=== PATIENT | female | born 1965 | race Caucasian/White ===

== ENCOUNTER 2016-07-22 10:14 | Day surgery (SDC) | payer BC ==
--- NOTE | ~2016-07-22 | EGD ---
EGD REPORT [facility] [address] [address] NAME: LOUISE THAKUR : 65 STATUS : REG [facility]#: [id number] AGE: 51 ADM/REG DATE : 07/22/16 MR#: [id number] REPORT SERV DATE: 07/22/16 DICTATED BY: TOMEKA REVELES DATE: 07/22/16 REPORT STATUS : Draft [facility]ANSCRIBED BY: [facility] DATE: 07/22/16 Endoscopy Center Patient Name: Louise Thakur Date of : 1965 Attending MD: TOMEKA REVELES, Procedure Date No Time: 07/22/2016 Procedure: Flexible Sigmoidoscopy Indications: For therapy of colon polyps (rectal carcinoid) Referring MD: Erika Tyson Medicines: Monitored Anesthesia Care Complications: No immediate complications. Estimated blood loss: None. Procedure: Pre-Anesthesia Assessment: - ASA Grade Assessment: II - A patient with mild systemic disease. After obtaining informed consent, the endoscope was passed under direct vision. Throughout the procedure, the patient's blood pressure, pulse, and oxygen saturations were monitored continuously. The [facility] [id number] was introduced through the anus and advanced to the rectosigmoid junction. The flexible sigmoidoscopy was accomplished without difficulty. The patient tolerated the procedure well. The quality of the bowel preparation was good. Findings: The perianal and digital rectal examinations were normal. A single localized erosion with non-bleeding was found in the sigmoid colon. The was a slight whitish discoloration at the base. Preparations were made for mucosal resection. Band ligator and snare mucosal resection was successfully performed. The exam was otherwise without abnormality. Impression: - A single erosion in the sigmoid colon. - The examination was otherwise normal. - Mucosal resection was successfully performed. Recommendation: - Return to previous diet. - Continue present medications. - Await pathology results. - Repeat flexible sigmoidoscopy in 1 year for surveillance. Procedure Code(s): --- Professional --- 36200, 52, Sigmoidoscopy, flexible; with removal of tumor(s), polyp(s), or other lesion(s) by snare technique EGD REPORT [facility] [address] [place] [address] [place]. [address] NAME: LOUISE THAKUR : [birth year] STATUS : REG [facility] PAT#: [id number] AGE: 51 ADM/REG DATE : 07/22/16 MR#: [id number] REPORT SERV DATE: 07/22/16 DICTATED BY: TOMEKA REVELES DATE: 07/22/16 REPORT STATUS : Draft TRANSCRIBED BY: [employer] DATE: 07/22/16 Diagnosis Code(s): --- Professional --- K63.3, Ulcer of intestine K63.5, Polyp of colon CPT copyright 2013 [employer]. All rights reserved. The codes documented in this report are preliminary and upon production operations engineer review may be revised to meet current compliance requirements. TOMEKA REVELES, 07/22/2016 12:56 PM Number of Addenda: 0 Note Initiated On: 07/22/2016 12:34 PM Scope Withdrawal Time 0 hours 0 minutes 0 seconds [address] [place] [address]
[~2016-07-22 10:14] MED LIST: ACTEMRA80 MG/4 ML SC; FISH-EPA1000 MG PO; FOLIC PO; MULTIVITAMI1 PO; OS500+D PO; PLAQ200B PO; ZOL100 PO
== END 2016-07-22 23:59 | disposition home or self-care (01) ==
LOC: DMU 10:14
PROVIDERS: Internal Medicine Gastroenterology
PROC: 0DBN8ZX Excision of Sigmoid Colon, Via Natural or Artificial Opening Endoscopic, Diagnostic (ICD-10-PCS; principal; 2016-07-22 12:30)
DX: D3A.8 Other benign neuroendocrine tumors (principal); K63.3 Ulcer of intestine; M06.9 Rheumatoid arthritis, unspecified; Z98.890 Other specified postprocedural states
CPT/HCPCS: 88305; 88307; 88342; 88360

== ENCOUNTER 2016-08-15 12:10 | Day surgery (SDC) | payer BC, SELFPAY ==
--- NOTE | ~2016-08-15 | EGD ---
EGD REPORT [facility] [address] [address] NAME: LOUISE THAKUR : [birth year] STATUS : REG [facility]#: [id number] AGE: 51 ADM/REG DATE : 08/15/16 MR#: [id number] REPORT SERV DATE: 08/15/16 DICTATED BY: DATE: REPORT STATUS : Draft TRANSCRIBED BY: [employer] DATE: 08/15/16 Endoscopy Center Patient Name: Louise Thakur Date of : 1965 Attending MD: TOMEKA REVELES, Procedure Date No Time: 08/15/2016 Procedure: Lower EUS Indications: Rectal mucosal mass found on flex sig/colonoscopy. 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 Referring MD: FEI WORRELL MD, Erika Walters Medicines: Monitored Anesthesia Care Complications: No immediate complications. Estimated blood loss: None. Procedure: Pre-Anesthesia Assessment: - ASA Grade Assessment: II - A patient with mild systemic disease. After obtaining informed consent, the endoscope was passed under direct vision. Throughout the procedure, the patient's blood pressure, pulse, and oxygen saturations were monitored continuously. The Endoscope was introduced through the anus and advanced to the rectosigmoid junction for ultrasound. Findings: Endosonographic Finding : The anal canal was normal. The rectum was normal. The perirectal space was normal. No lymph nodes were seen in the perirectal region. Impression: - Endosonographic images of the anal canal were unremarkable. - Endosonographic images of the rectum were unremarkable. - Endosonographic images of the perirectal space were unremarkable. - No lymph nodes were seen in the perirectal region during endosonographic examination. Recommendation: - Return to previous diet. - Continue present medications. - Return to referring physician. Procedure Code(s): --- Professional --- 25136, Sigmoidoscopy, flexible; with endoscopic ultrasound examination EGD REPORT [facility] [address] [place] [address] NAME: LOUISE THAKUR : [birth year] STATUS : REG [facility]#: [id number] AGE: 51 ADM/REG DATE : 08/15/16 MR#: [id number] REPORT SERV DATE: 08/15/16 DICTATED BY: DATE: REPORT STATUS : Draft TRANSCRIBED BY: [employer] DATE: 08/15/16 Diagnosis Code(s): --- Professional --- K62.89, Other specified diseases of anus and rectum CPT copyright 2013 [employer]. All rights reserved. The codes documented in this report are preliminary and upon edi programmer analyst review may be revised to meet current compliance requirements. TOMEKA ABDIRIZAK, 08/15/2016 2:28 PM Number of Addenda: 0 Note Initiated On: 08/15/2016 2:03 PM Scope Withdrawal Time 0 hours 0 minutes 0 seconds [address] [place] [address]
== END 2016-08-15 23:59 | disposition home or self-care (01) ==
LOC: DMU 12:10
PROVIDERS: Internal Medicine Gastroenterology
PROC: 0DJD8ZZ Inspection of Lower Intestinal Tract, Via Natural or Artificial Opening Endoscopic (ICD-10-PCS; principal; 2016-08-15 14:30)
DX: C7A.026 Malignant carcinoid tumor of the rectum (principal); M06.9 Rheumatoid arthritis, unspecified; K63.5 Polyp of colon; Z96.643 Presence of artificial hip joint, bilateral; Z87.891 Personal history of nicotine dependence; Z79.899 Other long term (current) drug therapy; Z98.890 Other specified postprocedural states
CPT/HCPCS: 76872